=== PATIENT | female | born 1955 | race Caucasian/White ===

== ENCOUNTER 2019-01-30 22:11 | Emergency (ER) | payer MEDICARE, MEDICAID ==
[2019-01-30 22:19] VITALS: BP 175/91
--- NOTE | 2019-01-30 23:17 | RADIOLOGY REPORT (SQ) ---
EXAM DESCRIPTION: XR CHEST 1 VIEW COMPLETED DATE/TME: 01/30/2019 22:24 CLINICAL HISTORY: 63 years, Female, DIFFICULTY BREATHING COMPARISON: None. NUMBER OF VIEWS: One TECHNIQUE: Single frontal view of the chest was obtained LIMITATIONS: None. FINDINGS: Cardiac and mediastinal contours are normal in appearance. Lungs are clear. No pleural effusion or pneumothorax. IMPRESSION: No acute disease. copyright 2010 [employer]- All Rights Reserved
--- NOTE | 2019-01-31 00:12 | ER Document Report ---
ED Medical Screen (RME) - General Chief Complaint: Shortness Of Breath Stated Complaint: TROUBLE BREATHING Time Seen by Provider: 01/31/19 00:05 Mode of Arrival: Wheelchair Information source: Patient Notes: 63-year-old female presented to ED for complaint of shortness of breath since Tuesday. She states she had difficulty breathing shortness of breath cough and congestion. She states it feels the same as when she had low potassium and had to come in here and get a lot of potassium. She states she does have a history of a ME at 33 with a had to do a balloon. She states she has a history of high blood pressure cholesterol and has had a tubal ligation. 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 She is alert oriented respirations regular and unlabored speaking in full sentences. O2 sat was 100% when I examined her. I have greeted and performed a rapid initial assessment of this patient. A comprehensive ED assessment and evaluation of the patient, analysis of test results and completion of medical decision making process will be conducted by an additional ED providers. Dictation of this chart was performed using voice recognition software; therefore, there may be some unintended grammatical errors. TRAVEL OUTSIDE OF THE [place] IN LAST 30 DAYS: No - Related Data Allergies/Adverse Reactions: No Known Allergies Allergy (Unverified 01/30/19 22:20) Physical Exam - Vital signs Vitals: Temp Pulse Resp BP Pulse Ox 97.3 F 92 22 H 175/91 H 95 01/30/19 22:15 01/30/19 22:15 01/30/19 22:15 01/30/19 22:15 01/30/19 22:15 Course - Vital Signs Vital signs: Temp Pulse Resp BP Pulse Ox 97.3 F 92 22 H 175/91 H 95 01/30/19 22:15 01/30/19 22:15 01/30/19 22:15 01/30/19 22:15 01/30/19 22:15
[2019-01-31 01:45] LABS: ABSOLUTE EOSINOPHILS # (AUTO) 0.1 10^3/uL (0.0-0.6); ABSOLUTE MONOCYTES (AUTO) 0.4 10^3/uL (0.1-1.4); ABSOLUTE NEUT (AUTO) 4.1 10^3/uL (1.7-8.2); BASOPHILS % (AUTO) 0.5 % (0-2); EOSINOPHILS % (AUTO) 1.8 % (0-6); HEMATOCRIT 38.7 % (36.0-47.0); HEMOGLOBIN 13.6 g/dL (12.0-15.5); MEAN CORPUSCULAR HEMOGLOBIN 31.2 pg (27.0-33.4); MEAN CORPUSCULAR HGB CONC 35.1 g/dL (32.0-36.0); MEAN CORPUSCULAR VOLUME 89 fl (80-97); MONOCYTES % (AUTO) 6.7 % (3-13); PLATELET COUNT 427 10^3/uL (150-450); RED BLOOD COUNT 4.36 10^6/uL (3.72-5.28); RED CELL DISTRIBUTION WIDTH 13.3 % (11.5-14.0); TOTAL CELLS COUNTED % (AUTO) 100 %; WHITE BLOOD COUNT 6.7 10^3/uL (4.0-10.5)
[2019-01-31 02:07] LABS: ALBUMIN 4.7 g/dL (3.5-5.0); ALKALINE PHOSPHATASE 78 U/L (38-126); ANION GAP 12 (5-19); ASPARTATE AMINO TRANSFERASE 29 U/L (14-36); BILIRUBIN,DIRECT 0.3 mg/dL (0.0-0.4); BILIRUBIN,TOTAL 0.4 mg/dL (0.2-1.3); BLOOD UREA NITROGEN 7 mg/dL (7-20); CALCIUM 9.9 mg/dL (8.4-10.2); CARBON DIOXIDE 29 mmol/L (22-30); CHLORIDE 84 mmol/L (98-107); GLUCOSE 107 mg/dL (75-110); POTASSIUM 4.7 mmol/L (3.6-5.0); TOTAL PROTEIN 7.6 g/dL (6.3-8.2)
[2019-01-31 02:20] LABS: APPEARANCE,URINE CLEAR; BILIRUBIN,URINE NEGATIVE (NEGATIVE); COLOR,URINE COLORLESS; GLUCOSE, URINE NEGATIVE (NEGATIVE); KETONES,URINE NEGATIVE (NEGATIVE); LEUKOCYTE ESTERASE,URINE NEGATIVE (NEGATIVE); NITRITE,URINE NEGATIVE (NEGATIVE); PROTEIN,URINE NEGATIVE (NEGATIVE); URINE SPECIFIC GRAVITY 1.003; UROBILINOGEN,URINE NEGATIVE mg/dL (<2.0)
[2019-01-31] MEDS ORDERED: METHYLPREDNISOLONE INJ 125 MG/2 ML SDV IV ONE (04:00)
[2019-01-31] MEDS ORDERED: IPRATROPIUM/ALBUTEROL 0.5-2.5 MG/3 ML AMPUL NEB ONE (04:00)
[2019-01-31] MEDS ORDERED: NORMAL SALINE 1000 ML 1,000 ML IV ONE (04:00)
--- NOTE | 2019-01-31 04:07 | ER Document Report ---
ED General - General Chief Complaint: Shortness Of Breath Stated Complaint: TROUBLE BREATHING Time Seen by Provider: 01/31/19 00:05 Primary Care Provider: BARBARA ANDERSON FNP-C [Primary Care Provider] - Follow up as needed Mode of Arrival: Wheelchair Information source: Patient, Relative TRAVEL OUTSIDE OF THE [place] IN LAST 30 DAYS: No - HPI Notes: Patient is a 63-year-old female smoker history of COPD and previous nebulizer an d previous steroid inhaler use in the past presents to the emergency department with report of gradually progressive dyspnea that she has had over the last 5 days associated with worsening nasal congestion and cough productive of only whitish phlegm. Patient denies any chest pain or fever or nausea or vomiting or abdominal pain, diarrhea or dysuria. The patient has a previous history of pneumonia and hyponatremia and COPD. She continues to smoke. She currently is not on nebulizers or inhalers at the current time. She is not on a high salt diet to address the hyponatremia. She denies any weight loss or night sweats. Medications losartan - Related Data Allergies/Adverse Reactions: No Known Allergies Allergy (Unverified 01/30/19 22:20) Past Medical History - General Information source: Patient - Social History Smoking Status: Current Every Day Smoker Frequency of alcohol use: None Drug Abuse: None Lives with: Family Family History: None Review of Systems - Review of Systems -: Yes All other systems reviewed and negative Physical Exam - Vital signs Vitals: Temp Pulse Resp BP Pulse Ox 97.3 F 92 22 H 175/91 H 95 01/30/19 22:15 01/30/19 22:15 01/30/19 22:15 01/30/19 22:15 01/30/19 22:15 - Notes Notes: PHYSICAL EXAMINATION: GENERAL: Well-appearing, well-nourished and in no acute distress. HEAD: Atraumatic, normocephalic. EYES: Pupils equal round and reactive to light, extraocular movements intact, conjunctiva are normal. ENT: Nares patent with minimal nasal congestion. No sinus discomfort. Clear oropharynx clear without exudates. Moist mucous membranes. NECK: Normal range of motion, supple without lymphadenopathy LUNGS: Breath sounds coarse with scant expiratory wheezes. No accessory muscle use or retraction. HEART: Regular rate and rhythm without murmurs ABDOMEN: Soft, nontender, nondistended abdomen. No guarding, no rebound. No masses appreciated. Female : deferred Musculoskeletal: Normal range of motion, no pitting or edema. No cyanosis. NEUROLOGICAL: Cranial nerves grossly intact. Normal speech, normal gait. Normal sensory, motor exams PSYCH: Normal mood, normal affect. SKIN: Warm, Dry, normal turgor, no rashes or lesions noted. Course - Re-evaluation Re-evalutation: 01/31/19 04:04 Patient was found to be hyponatremic. The patient was given normal saline 1 L and IV Solu-Medrol and a DuoNeb 01/31/19 04:07 After DuoNeb, repeat lung auscultation showed no wheezing. The patient was ambulatory and felt stable for discharge. She took her usual dose of losartan. 01/31/19 05:27 No evidence for congestive heart failure or pneumonia. Patient describes seasonal allergies as precipitating her symptoms. She is already on Flonase and Zyrtec or Claritin. She will be given a Zithromax Z-Eric and steroid taper and a inhaler. Patient was counseled at length about the need to quit smoking. 01/31/19 05:28 Given the low urine sodium level, this does not fit for [facility]. 01/31/19 05:29 - Vital Signs Vital signs: Temp Pulse Resp BP Pulse Ox 97.3 F 92 22 H 175/91 H 96 01/30/19 22:15 01/30/19 22:15 01/30/19 22:15 01/30/19 22:15 01/31/19 04:38 - Laboratory Result Diagrams: 01/31/19 01:25 01/31/19 01:25 Laboratory results interpreted by me: 01/31/19 01/31/19 01/31/19 01:25 01:25 01:25 Sodium 124.6 L Chloride 84 L Urine Blood SMALL H Urine Sodium 25 L - EKG Interpretation by Ar EKG shows normal: Sinus rhythm Additional EKG results interpreted by me: 01/31/19 04:08 EKG is interpreted by ar showed normal sinus rhythm heart rate of 88. There is no gross evidence for acute OH or ischemia noted. There is no old EKG available for comparison. Discharge - Discharge Clinical Impression: Tobacco abuse, COPD exacerbation, Hyponatremia Condition: Stable Disposition: HOME, SELF-CARE Instructions: Stop Smoking ([facility]), Chronic Obstructive Lung Disease ([facility]), Hyponatremia ([facility]) Additional Instructions: Add salt to your diet. You need a repeat blood test to check your sodium level in the next 2 to 3 weeks. Return to the emergency department for fever or chest pain or worsening difficulty breathing. Stop smoking. Use nicotine patches as directed. Prescriptions: Albuterol Sulfate [Proair HFA Inhalation Aerosol 8.5 gm MDI] 2 puff IH Q4H PRN #1 mdi PRN Reason: Azithromycin [Zithromax 250 mg Tablet] 250 mg PO ASDIR PRN #6 tablet PRN Reason: Prednisone [Deltasone 10 mg Tablet] 10 mg PO ASDIR PRN #21 tablet PRN Reason: Referrals: BARBARA ANDERSON FNP-C [Primary Care Provider] - Follow up in 1 week
[2019-01-31] MEDS ORDERED: ALBUTEROL SULFATE HFA (90 MCG/PUFF) 8 GM MDI (1 MDI/ER DISP) IH PRN (05:32)
--- NOTE | 2019-01-31 14:52 | EKG REPORT ---
SEVERITY:- NORMAL ECG - SINUS RHYTHM : Confirmed by: Gus Nuno 31-Jan-2019 14:51:58
== END 2019-01-31 06:15 | disposition home or self-care (01) ==
LOC: ER 22:11
DX: J44.1 Chronic obstructive pulmonary disease with (acute) exacerbation (principal); E87.1 Hypo-osmolality and hyponatremia; R09.81 Nasal congestion; R05 Cough; F17.200 Nicotine dependence, unspecified, uncomplicated; Z87.01 Personal history of pneumonia (recurrent); Z79.899 Other long term (current) drug therapy
CPT/HCPCS: 93005; 94640; 99285; 96361; 96374; 36415; 84300; 85025; 80053; 81001; 83880; 71045; 93010; J2930; J7030; J3490; A9270; J7620